=== PATIENT | female | born 1940 | race Caucasian/White ===

== ENCOUNTER 2022-09-30 16:08 | Emergency (ER) | payer BC, MEDICARE ==
[~2022-09-30] VITALS: Ht 167.6 cm; Wt 54.1 kg
--- NOTE | 2022-09-30 17:17 | NUR ---
Pt in [facility], Pt fell aprox 1 hr ago. Pt hit her head. Pt c/o pain to L lateral side of her forehead c/o 2/10 pain. L side of her [employer] c/o 4/10 pain w/ movement sharp pain in the joint felt. Abrasion to her L knee. Pt educated to POC. Pending provider, aretha and RASHIDA.
[2022-09-30] MEDS ORDERED: dexamethasone sod phosphate 10mg/ml inj PO STA (18:42)
[2022-09-30] MEDS ORDERED: DOXYCYCLINE 100MG CAPSULE PO STA ×2 (18:42→21:04)
[2022-09-30] MEDS ORDERED: cefpodoxime proxetil 100mg tablet PO STA (18:42)
[2022-09-30] MEDS ORDERED: ipratropium/albuterol 3ml nebule NEB ONE (18:45)
[2022-09-30 19:48] VITALS: BP 129/69
[2022-09-30] MEDS ORDERED: ALBU8HFA PO (20:04)
[2022-09-30] MEDS ORDERED: METH4TAB3 PO (20:04)
[2022-09-30] MEDS ORDERED: CEFP100T7 PO (20:04)
[2022-09-30] MEDS ORDERED: DOXY100C76 PO (20:04)
[2022-09-30] MEDS ORDERED: diphenhydrAMINE 50 mg/ml inj IM ONE (20:15)
[2022-09-30] MEDS ORDERED: ondansetron 4mg rapidly disintigrating tab PO ONE (20:15)
[2022-09-30] MEDS ORDERED: cefpodoxime proxetil 100mg tablet PO SCH (21:05)
[2022-09-30] MEDS ORDERED: LEVO750T68 PO (21:07)
[2022-10-01] MEDS ORDERED: BUPIVAcaine/PF 5 mg/ml 10ml ONE (07:46)
== END 2022-09-30 21:56 | disposition home or self-care (01) ==
LOC: ER 16:10
DX: S00.83XA Contusion of other part of head, initial encounter (principal); R06.02 Shortness of breath; R05.9 Cough, unspecified; Z88.2 Allergy status to sulfonamides; Z88.8 Allergy status to other drugs, medicaments and biological substances; Z88.6 Allergy status to analgesic agent; Z79.899 Other long term (current) drug therapy; W18.39XA Other fall on same level, initial encounter; Y93.89 Activity, other specified; Y92.89 Other specified places as the place of occurrence of the external cause; Y99.8 Other external cause status
CPT/HCPCS: 70450; 71045; 94640; 96372; 99285; J1100; J1200; 99284; J3490